=== PATIENT | female | born 1960 | race Native Hawaiian/Other Pacific Islander ===

== ENCOUNTER 2018-02-16 18:48 | Emergency (ER) | payer SELFPAY ==
[2018-02-16 20:01] LABS: Basophils % (Auto) 0.3 % (0.0-1.8); Eosinophils # (Auto) 0.1 K/mm3 (0.0-0.4); Eosinophils % (Auto) 0.4 % (0.0-4.3); Hematocrit 47.3 % (30.3-42.9); Lymphocytes # (Auto) 1.3 K/mm3 (1.2-5.4); Lymphocytes % (Auto) 8.8 % (13.4-35.0); Mean Corpuscular HGB Conc 32 % (30-34); Mean Corpuscular Hemoglobin 26 pg (28-32); Mean Corpuscular Volume 83 fl (79-97); Monocytes # (Auto) 1.3 K/mm3 (0.0-0.8); Monocytes % (Auto) 8.3 % (0.0-7.3); Platelet Count 291 K/mm3 (140-440); Red Blood Count 5.71 M/mm3 (3.65-5.03); Red Cell Distribution Width 15.5 % (13.2-15.2)
[2018-02-16 20:24] LABS: Albumin 4.5 g/dL (3.9-5); Calcium 9.8 mg/dL (8.4-10.2)
[2018-02-16] MEDS ORDERED: MORPHINE IV ONE (21:53)
[2018-02-16] MEDS ORDERED: ZOFRAN IV ONE (21:53)
--- NOTE | 2018-02-16 21:57 | Emergency Department Report ---
ED Abdominal Pain HPI - General Chief Complaint: Nausea/Vomiting/Diarrhea Stated Complaint: NAUSEA/VOMITING Time Seen by Provider: 02/16/18 21:43 Source: patient, family, EMS Mode of arrival: Stretcher Limitations: Language Barrier - History of Present Illness Initial Comments: Mrs. Bruce is a 57-year-old female with history of [id number] diabetes, hypertension and hypothyroidism. Has a history of . No other abdominal surgeries. Had epigastric pain almost immediately after eating pork this afternoon around 4:30. She arrived by EMS. Has a history of elevated liver enzymes according to the daughter. Daughter provided [place] interpretation which was preferred by the patient. MD Complaint: abdominal pain -: Gradual Location: epigastric Radiation: none Severity scale (0 -10): 7 Quality: cramping, sharp Consistency: constant Improves With: eating Context: other (previous episode two weeks ago.) - Related Data Previous Rx's Medication Instructions Recorded Last Taken Type Ciprofloxacin HCl [Ciprofloxacin 500 mg PO BID 3 Days #6 tablet 02/17/18 Unknown Rx TAB] Famotidine 20 mg PO BID 30 Days #60 tablet 02/17/18 Unknown Rx Allergies Allergy/AdvReac Type Severity Reaction Status Date / Time No Known Allergies Allergy Unverified 02/16/18 19:30 ED Review of Systems ROS: Stated complaint: NAUSEA/VOMITING Other details as noted in HPI Comment: All other systems reviewed and negative Constitutional: denies: fever, malaise Respiratory: denies: cough Cardiovascular: denies: chest pain ED Past Medical Hx - Past Medical History Hx Hypertension: Yes Hx Dementia: Yes (NON INSULIN) Additional medical history: HYPOTHYROID - Surgical History Past Surgical History?: No - Social History Smoking Status: Never Smoker Substance Use Type: None - Medications Home Medications: Home Medications Medication Instructions Recorded Confirmed Last Taken Type Ciprofloxacin HCl [Ciprofloxacin 500 mg PO BID 3 Days #6 tablet 02/17/18 Unknown Rx TAB] Famotidine 20 mg PO BID 30 Days #60 tablet 02/17/18 Unknown Rx ED Physical Exam - General Limitations: Language Barrier General appearance: alert, in no apparent distress - Head Head exam: Present: atraumatic, normocephalic - Eye Eye exam: Present: normal appearance - ENT ENT exam: Present: mucous membranes moist - Neck Neck exam: Present: normal inspection - Respiratory Respiratory exam: Present: normal lung sounds bilaterally. Absent: respiratory distress, wheezes, rales, rhonchi - Cardiovascular Cardiovascular Exam: Present: regular rate, normal rhythm, normal heart sounds. Absent: systolic murmur, diastolic murmur, rubs, gallop - GI/Abdominal GI/Abdominal exam: Present: soft, normal bowel sounds. Absent: distended, tenderness, guarding, rebound - Extremities Exam Extremities exam: Present: normal inspection - Back Exam Back exam: Present: normal inspection - Neurological Exam Neurological exam: Present: alert, oriented X3 - Psychiatric Psychiatric exam: Present: normal affect, normal mood - Skin Skin exam: Present: warm, dry, intact, normal color. Absent: rash ED Course Vital Signs 02/16/18 19:59 Temperature 97.8 F Pulse Rate 95 H Respiratory 16 Rate Blood Pressure 120/45 [Right] O2 Sat by Pulse 97 Oximetry ED Medical Decision Making - Lab Data Result diagrams: 02/16/18 19:41 02/16/18 19:41 - Radiology Data Radiology results: report reviewed - Medical Decision Making Mrs. Bruce presents with epigastric pain vomiting diarrhea. Differential diagnosis includes biliary colic, pancreatitis, peptic ulcer disease, gastroenteritis. Plan: I prescribed ciprofloxacin for possible infectious etiology with elevated white count. Also prescribed famotidine. I recommended Tylenol over-the- counter for pain. Us Critical care attestation.: If time is entered above; I have spent that time in minutes in the direct care of this critically ill patient, excluding procedure time. ED Disposition Clinical Impression: Abdominal pain Disposition: DC-01 TO HOME OR SELFCARE Is pt being admited?: No Does the pt Need Aspirin: No Condition: Stable Instructions: Acute Abdominal Pain (ED) Prescriptions: Ciprofloxacin HCl [Ciprofloxacin TAB] 500 mg PO BID 3 Days #6 tablet Famotidine 20 mg PO BID 30 Days #60 tablet Referrals: PRIMARY CARE, [Primary Care Provider] - 3-5 Days Print Language: LAO
--- NOTE | 2018-02-16 23:08 | Ultrasound Report ---
FINAL REPORT PROCEDURE: US ABDOMEN COMPLETE TECHNIQUE: Real-time sonography in multiple planes of the abdomen was performed with image documentation. CPT 63889 HISTORY: epigastric pain biliary colic COMPARISON: No prior studies are available for comparison. FINDINGS: The gallbladder is normal appearance. No evidence of gallstones or gallbladder wall thickening. Common bile duct is normal caliber measuring 3.8 millimeters. The intrahepatic ducts are not distended. No ascites is visualized. The spleen does not appear to be enlarged. Right and left kidney show no focal abnormalities. No masses calculi or hydronephrosis visualized. The right kidney measures 11.6 centimeters in length left kidney 10.5 centimeters in length. Visualization of the liver is limited. No gross abnormality is seen. The pancreas is obscured by bowel gas and cannot be commented on. IMPRESSION: The exam is mildly limited as described. No acute or focal abnormalities are identified.
[2018-02-17 02:25] VITALS: BP 135/71
== END 2018-02-17 02:25 | disposition home or self-care (01) ==
LOC: ED 18:48
DX: R10.13 Epigastric pain (principal); I10 Essential (primary) hypertension; E03.9 Hypothyroidism, unspecified; E11.9 Type 2 diabetes mellitus without complications
CPT/HCPCS: 36415; 76700; 80053; 83690; 85025; 93005; 93010; 96374; 96375; 99284; J2270; J2405